=== PATIENT | male | born 1970 | race Caucasian/White ===

== ENCOUNTER 2019-08-05 15:10 | Emergency (ER) | payer SELFPAY ==
[2019-08-05] MEDS ORDERED: Lidocaine 1% w/Epinephrine 1:100K 20 ML VIAL ONE (15:36)
== END 2019-08-05 16:05 | disposition home or self-care (01) ==
LOC: MADERS 15:10
DX: S01.01XA Laceration without foreign body of scalp, initial encounter (principal); Z86.73 Personal history of transient ischemic attack (TIA), and cerebral infarction without residual deficits; F17.220 Nicotine dependence, chewing tobacco, uncomplicated; X58.XXXA Exposure to other specified factors, initial encounter
CPT/HCPCS: 12002

== ENCOUNTER 2019-08-13 19:47 | Emergency (ER) | payer SELFPAY | END 2019-08-13 20:20 | disposition home or self-care (01) | LOC: MADERS 19:47 | DX: S01.01XD Laceration without foreign body of scalp, subsequent encounter (principal); F17.220 Nicotine dependence, chewing tobacco, uncomplicated; X58.XXXD Exposure to other specified factors, subsequent encounter ==